=== PATIENT | female | born 1945 | race Two or more races ===

== ENCOUNTER 2024-01-16 14:18 | Emergency (ER) | payer OTHER, MEDICARE ==
[~2024-01-16] VITALS: Ht 152.4 cm; Wt 100.0 kg
[2024-01-17 06:00] VITALS: RESP 12; O2SAT 96
[2024-01-17 07:30] VITALS: RESP 12; O2SAT 96
[2024-01-17 07:33] VITALS: TEMP 97.6
[2024-01-17 10:00] VITALS: BP 150/61; PULSE 87; RESP 16; O2SAT 96
== END 2024-01-17 11:10 | disposition home or self-care (01) ==
LOC: EDUNIT# 14:18 → ER 14:18 → EDBD 14:18 → ER 20:13
DX: K94.23 Gastrostomy malfunction (principal); I10 Essential (primary) hypertension; Z90.49 Acquired absence of other specified parts of digestive tract; Z90.89 Acquired absence of other organs; Z88.2 Allergy status to sulfonamides; Z88.0 Allergy status to penicillin; Z88.8 Allergy status to other drugs, medicaments and biological substances

== ENCOUNTER → 2024-02-12 | Day surgery (SDC) | payer MEDICARE, OTHER ==
[~2024-02-12] VITALS: Ht 152.4 cm; Wt 97.5 kg
[~2024-02-12] MED LIST: ALL100T PO; ASPI1TAB20 PO; CLINDAMYCIN 300MG IV 50 ML IV ONE; CLINDAMYCIN 600MG IV 50 ML IV ONE; FOLI-119 PO; FURO40TA4 PO; HYDR12.59 PO; KETAMINE 50mg/ML 1ml syringe ONE; LIDOCAINE 2% (LOCAL ANESTH.) PF 5ml SDV ONE; LOSA-534 PO; MIDAZOLAM HCL 2MG/2ML 2ml VIAL (1mg/ml) ONE; ONDANSETRON HCL 4 MG/2 ML VIAL IV ONE; ONDANSETRON HCL 4 MG/2 ML VIAL ONE; PROPOFOL 10 MG/ML 20 ML IV ONE; SIMV10TA20 PO; fentaNYL CITRATE 100 MCG/2 ML VL ONE
[2024-02-12 08:53] LABS: Basophils # (auto) 0.1 10 ^3/uL (0-0.2); Basophils % (auto) 0.9 % (0.0-2.0); Eosinophils # (auto) 0.2 10 ^3/uL (0-0.8); Eosinophils % (auto) 2.4 % (0.0-7.0); Hemoglobin 11.3 g/dL (12.2-16.2); Lymphocytes # (auto) 1.4 10 ^3/uL (0.4-5.4); Lymphocytes % (auto) 19.7 % (10.0-50.0); Mean Corpuscular Hemoglobin 32.5 pg (28.0-32.0); Mean Corpuscular Hgb Conc. 33.2 g/dL (32.0-36.0); Mean Corpuscular Volume 98.1 fL (80.0-100.0); Monocytes # (auto) 0.7 10 ^3/uL (0-1.3); Neutrophils # (auto) 4.6 10 ^3/uL (1.6-8.6); Red Blood Cells 3.47 10^6/uL (4.0-5.20); Red Cell Distribution Width 18.3 % (11.8-14.3); White Blood Cell 6.9 10^3/uL (4.4-10.8)
[2024-02-12 09:10] LABS: Anion Gap 7 (5-15); Carbon Dioxide 26 mmol/L (20-30); Chloride 107 mmol/L (98-107); Potassium 3.8 mmol/L (3.5-5.1); Sodium 140 mmol/L (136-145)
[2024-02-12 09:11] LABS: Calcium 10.4 mg/dL (8.5-10.1)
[2024-02-12 09:13] LABS: INR 1.03 (0.9-1.15); Partial Thromboplastin Time 24.2 SEC (24.5-34.5); Prothrombin Time 10.9 sec (9.3-11.8)
[2024-02-12 09:16] LABS: BUN/Creatinine Ratio 11.6 (10.0-20.0); Blood Urea Nitrogen 10 mg/dL (9-23); Glucose 89 mg/dL (74-106)
[2024-02-12 10:34] VITALS: TEMP 98.8; O2SAT 100
[2024-02-12] MEDS: CLINDAMYCIN 600MG IV 50 ML IV ONE (11:00)
[2024-02-12 11:34] VITALS: BP 134/50; PULSE 86; RESP 20; O2SAT 92
== END | disposition home or self-care (01) ==
LOC: GI 07:46
PROVIDERS: ATTEND Internal Medicine Gastroenterology
DX: K94.13 Enterostomy malfunction (principal); K29.80 Duodenitis without bleeding; K29.50 Unspecified chronic gastritis without bleeding; M06.9 Rheumatoid arthritis, unspecified; I11.0 Hypertensive heart disease with heart failure; I50.9 Heart failure, unspecified; E66.9 Obesity, unspecified; E78.5 Hyperlipidemia, unspecified; E66.09 Other obesity due to excess calories; Z68.41 Body mass index [BMI] 40.0-44.9, adult; Z79.899 Other long term (current) drug therapy; Z90.710 Acquired absence of both cervix and uterus; Z85.3 Personal history of malignant neoplasm of breast; Z98.890 Other specified postprocedural states; Z88.0 Allergy status to penicillin; Z88.1 Allergy status to other antibiotic agents; Z88.5 Allergy status to narcotic agent
CPT/HCPCS: 36415; 43239; 43247; 71045; 80048; 85025; 85610; 85730; 88305; 88312; 88342; 93005; J2001; J2250; J2405; J2704; J3490; J7030